=== PATIENT | male | born 1970 | race Caucasian/White ===

== ENCOUNTER → 2017-04-06 | Outpatient (CLI) | payer SELFPAY | END | disposition home or self-care (01) | LOC: CARD 14:51 | DX: F15.90 Other stimulant use, unspecified, uncomplicated (principal) ==

== ENCOUNTER 2019-09-09 22:57 | Emergency (ER) | payer SELFPAY ==
[~2019-09-09] VITALS: Ht 182.8 cm; Wt 79.4 kg
[2019-09-09] MEDS ORDERED: ADDERALL 30 MG30 MG PO (23:13)
== END 2019-09-09 23:55 | disposition home or self-care (01) ==
LOC: ED 22:57
DX: K43.9 Ventral hernia without obstruction or gangrene (principal); Z79.899 Other long term (current) drug therapy